=== PATIENT | male | born 1955 | race Caucasian/White ===

== ENCOUNTER 2021-05-01 03:04 | Inpatient (IN) | payer MEDICARE, MEDICAID, SELFPAY ==
[2021-05-01] VITALS (103 sets, daily range): BP systolic 121–186; BP diastolic 61–91; PULSE 77–119; RESP 0–35; TEMP 37.2; O2SAT 92–99; BMI 24.3
--- NOTE | 2021-05-01 03:08 | XRR_ITS ---
PROCEDURE INFORMATION: Exam: XR Chest Exam date and time: 05/01/2021 3:08 AM Age: 65 years old Clinical indication: Shortness of breath; Patient HX: SOB. Lethargy. Elevated blood sugar. ; Additional info: Cp TECHNIQUE: Imaging protocol: XR of the chest. Views: 1 view. COMPARISON: CT chest con [id number] 04/25/2019 9:13 PM FINDINGS: Lungs: Unremarkable. No consolidation. Pleural spaces: Unremarkable. No pleural effusion. No pneumothorax. Heart/Mediastinum: Unremarkable. No cardiomegaly. Bones/joints: Unremarkable. XR/XR chest 1V portable [id number] IMPRESSION: No acute disease.
--- NOTE | 2021-05-01 03:09 | ECG_ITS ---
[facility] Test Date: 2021-05-01 Pat Name: Lucho Nix Jr Department: Room: Gender: Male Director Software Development: : 1955 Requested By: Quentin Black Order Number: [id number] Reading MD: Payton Gomez M.D. Measurements Intervals [place] Rate: 104 P: 75 OR: 130 QRS: 74 QRSD: 99 T: 67 QT: 338 QTc: 446 Interpretive Statements SINUS TACHYCARDIA NONSPECIFIC T-WAVE ABNORMALITY WARNING: DATA QUALITY MAY AFFECT INTERPRETATION No previous ECG available for comparison Electronically Signed On 05-02-2021 18:27:11 CDT by Payton Gomez M.D. [email or web address]/store/OM/[id number]/[id number]
--- NOTE | 2021-05-01 03:10 | W.ED.WEAKNES ---
HPI - Weakness General: Chief complaint: General Medical Stated complaint: BLOOD SUGAR UP Time Seen by Provider: 05/01/21 03:04 Source: patient and EMS Mode of arrival: EMS Limitations: no limitations History of Present Illness: HPI Narrative: 65-year-old male has history of diabetes states that today has been feeling weak and nauseated. He states that he thinks he forgot to take his insulin his blood sugar was in the 500s per EMS. He states he had a episode of chest pain roughly 1 to 2 hours ago lasted 1 to 2 minutes and has been pain-free since and it resolved on its own. He denies any vomiting or diarrhea. States he had a low-grade fever earlier today but denies any cough or shortness of breath. Associated symptoms: Reports chest pain; Denies chills, dysuria, easy bruising, fever(s), headache(s), nausea or vomiting Review of Systems Const: Denies: fever(s), chills, body aches or change in appetite Eyes: Denies: blurry vision or eye discomfort ENMT: Denies: throat pain or dental pain Card: Reports: chest pain Resp: Denies: dyspnea GI: Denies: abdominal pain, nausea, vomiting or diarrhea : Denies: dysuria Musc: Denies: neck pain or back pain Skin/Breast: Denies: rash Neuro: Denies: headache(s) Psych: Denies: depression Tyler/Lymph: Denies: easy bruising All/Imm: Denies: urticaria Physical Exam Const: COMMON NORMALS: no acute distress, patient oriented x3 and healthy appearing HENMT: COMMON NORMALS: normocephalic and atraumatic HEAD & SCALP: normocephalic and atraumatic Eye: COMMON NORMALS: Equal, round and reactive pupils present and EOMs intact bilaterally PUPIL: Yes Equal, round and reactive pupils present Neck/C-Spine: COMMON NORMALS: full ROM and supple Chest: COMMONS NORMALS: normal inspection of the chest and normal palpation of entire chest wall Resp: COMMON NORMALS: normal respiratory effort, No retractions, No use of accessory muscles and clear to auscultation bilaterally AUSCULTATION: clear to auscultation bilaterally Cardio: COMMON NORMALS: regular rhythm and No murmurs present (Cardio) RATE: tachycardic RHYTHM: regular rhythm GI: COMMON NORMALS: Normal to inspection, nondistended, normoactive bowel sounds present, Soft to palpation, non-tender and no masses PALPATION: Yes Soft to palpation Extremity: COMMON NORMALS: normal to inspection and full ROM Neuro: COMMON NORMALS: patient oriented x3, moves all extremities and no focal motor deficits Psych: COMMON NORMALS: mental status grossly normal, Normal thought process present and cooperative THOUGHT PROCESS: Normal thought process present Skin: COMMON NORMALS: no rashes or lesions noted and no wounds GENERAL SKIN EXAM: no rashes or lesions noted Course Vital Signs: Vital signs: Vital Signs Temperature 98.9 F 05/01/21 03:07 Pulse Rate 111 H 05/01/21 03:07 Respiratory Rate 20 H 05/01/21 03:07 Blood Pressure 186/86 05/01/21 03:07 Pulse Oximetry 93 05/01/21 03:07 MDM - Weakness MDM Narrative: Medical decision making narrative: Patient presents here with nausea weakness and found to be in DKA is likely from noncompliance. Patient does not think he took his insulin yesterday he does have an elevated glucose on with anion gap and pH 7.1. Patient given IV fluids started on insulin drip. I spoke to the hospitalist will admit to ICU. Lab Data: Labs: Lab Results 05/01/21 05/01/21 05/01/21 Range/Units 03:08 03:18 03:18 WBC 19.2 H (4.0-10.0) 10^3/ uL RBC 5.72 H (4.1-5.3) 10^6/u L Hgb 16.4 (11.7-16.6) g/dL Hct 48.3 (42.0-52.0) % MCV 84.4 (80-94) fL MCH 28.7 (28.0-34.0) pg MCHC 34.0 (30.0-36.0) g/dL RDW 12.4 (12.1-15.1) % Plt Count 438 H (130-400) 10^3/c mm MPV 9.9 (7.4-10.4) fL Neut % (Auto) 91.4 % Lymph % (Auto) 4.3 % [place] % (Auto) 3.4 % Eos % (Auto) 0.0 % Baso % (Auto) 0.2 % Neut # (Auto) 17.60 H (1.8-7.7) 10^3/u L Lymph # (Auto) 0.8 (0.8-4.8) 10^3/u L [place] # (Auto) 0.7 (0.2-0.9) 10^3/u L Eos # (Auto) 0.0 (0.0-0.8) 10^3/u L Baso # (Auto) 0.0 (0.0-0.1) 10^3/u L Nucleated RBC % (a uto) 0 % Nucleated RBCs # 0.0 /100WBC Specimen Type Arterial Sample Site Radial, right ABG pH 7.17 L* (7.35-7.45) ABG pCO2 20.8 L (35-45) mmHg ABG pO2 110.0 H (80.0-100.0) mmH g ABG HCO3 7.5 L (22-26) mmol/L ABG Base Excess -19.0 L (-2.0-2.0) mmol/ L Sylvain Test Pos Hematocrit 49.7 (42-52) % O2 Delivery Device Room air Computer Aided Design Designer ID [employer]inja Sodium 126 L (136-145) mmol/L Potassium 4.6 (3.5-5.1) mmol/L Chloride 87 L (98-107) mmol/L Carbon Dioxide 8 L* (22-29) mmol/L Anion Gap 35.6 H (5-19) BUN 22 (8-23) mg/dL Creatinine 1.1 (0.7-1.2) mg/dL GFR Calculation 67.4 L (90-130) mL/min Glucose 564 H* (65-115) mg/dL POC Glucose (70-110) mg/dL Calculated Osmolal ity 291 (285-295) mOsm/k g Calcium 8.6 (8.5-10.5) mg/dL Total Bilirubin 0.6 (0.15-1.2) mg/dL AST 8 (0-40) U/L ALT 11 (0-41) U/L Alkaline Phosphata se 118 (40-130) IU/L Troponin T Baselin e (0-15) ng/L C-Reactive Protein 6.9 H (0.0-4.9) mg/L Total Protein 6.5 L (6.6-8.7) g/dL Albumin 4.0 (3.5-5.2) g/dL Globulin 2.5 (1.3-4.6) g/dL Serum Ketones (Negative) SARS-CoV-2 Ag (Rap id) (Negative) 05/01/21 05/01/21 05/01/21 Range/Units 03:18 03:18 03:25 WBC (4.0-10.0) 10^3/ uL RBC (4.1-5.3) 10^6/u L Hgb (11.7-16.6) g/dL Hct (42.0-52.0) % MCV (80-94) fL MCH (28.0-34.0) pg MCHC (30.0-36.0) g/dL RDW (12.1-15.1) % Plt Count (130-400) 10^3/c mm MPV (7.4-10.4) fL Neut % (Auto) % Lymph % (Auto) % [place] % (Auto) % Eos % (Auto) % Baso % (Auto) % Neut # (Auto) (1.8-7.7) 10^3/u L Lymph # (Auto) (0.8-4.8) 10^3/u L [place] # (Auto) (0.2-0.9) 10^3/u L Eos # (Auto) (0.0-0.8) 10^3/u L Baso # (Auto) (0.0-0.1) 10^3/u L Nucleated RBC % (a uto) % Nucleated RBCs # /100WBC Specimen Type Sample Site ABG pH (7.35-7.45) ABG pCO2 (35-45) mmHg ABG pO2 (80.0-100.0) mmH g ABG HCO3 (22-26) mmol/L ABG Base Excess (-2.0-2.0) mmol/ L Sylvain Test Hematocrit (42-52) % O2 Delivery Device Computer Aided Design Designer ID Sodium (136-145) mmol/L Potassium (3.5-5.1) mmol/L Chloride (98-107) mmol/L Carbon Dioxide (22-29) mmol/L Anion Gap (5-19) BUN (8-23) mg/dL Creatinine (0.7-1.2) mg/dL GFR Calculation (90-130) mL/min Glucose (65-115) mg/dL POC Glucose (70-110) mg/dL Calculated Osmolal ity (285-295) mOsm/k g Calcium (8.5-10.5) mg/dL Total Bilirubin (0.15-1.2) mg/dL AST (0-40) U/L ALT (0-41) U/L Alkaline Phosphata se (40-130) IU/L Troponin T Baselin e 9 (0-15) ng/L C-Reactive Protein (0.0-4.9) mg/L Total Protein (6.6-8.7) g/dL Albumin (3.5-5.2) g/dL Globulin (1.3-4.6) g/dL Serum Ketones Positive H (Negative) SARS-CoV-2 Ag (Rap id) Negative (Negative) 05/01/21 Range/Units 03:28 WBC (4.0-10.0) 10^3/ uL RBC (4.1-5.3) 10^6/u L Hgb (11.7-16.6) g/dL Hct (42.0-52.0) % MCV (80-94) fL MCH (28.0-34.0) pg MCHC (30.0-36.0) g/dL RDW (12.1-15.1) % Plt Count (130-400) 10^3/c mm MPV (7.4-10.4) fL Neut % (Auto) % Lymph % (Auto) % [place] % (Auto) % Eos % (Auto) % Baso % (Auto) % Neut # (Auto) (1.8-7.7) 10^3/u L Lymph # (Auto) (0.8-4.8) 10^3/u L [place] # (Auto) (0.2-0.9) 10^3/u L Eos # (Auto) (0.0-0.8) 10^3/u L Baso # (Auto) (0.0-0.1) 10^3/u L Nucleated RBC % (a uto) % Nucleated RBCs # /100WBC Specimen Type Sample Site ABG pH (7.35-7.45) ABG pCO2 (35-45) mmHg ABG pO2 (80.0-100.0) mmH g ABG HCO3 (22-26) mmol/L ABG Base Excess (-2.0-2.0) mmol/ L Sylvain Test Hematocrit (42-52) % O2 Delivery Device Computer Aided Design Designer ID Sodium (136-145) mmol/L Potassium (3.5-5.1) mmol/L Chloride (98-107) mmol/L Carbon Dioxide (22-29) mmol/L Anion Gap (5-19) BUN (8-23) mg/dL Creatinine (0.7-1.2) mg/dL GFR Calculation (90-130) mL/min Glucose (65-115) mg/dL POC Glucose 521 H* (70-110) mg/dL Calculated Osmolal ity (285-295) mOsm/k g Calcium (8.5-10.5) mg/dL Total Bilirubin (0.15-1.2) mg/dL AST (0-40) U/L ALT (0-41) U/L Alkaline Phosphata se (40-130) IU/L Troponin T Baselin e (0-15) ng/L C-Reactive Protein (0.0-4.9) mg/L Total Protein (6.6-8.7) g/dL Albumin (3.5-5.2) g/dL Globulin (1.3-4.6) g/dL Serum Ketones (Negative) SARS-CoV-2 Ag (Rap id) (Negative) EKG Data^: EKG 1: Attestation: I personally reviewed and interpreted this EKG as follows: EKG interpretation date: 05/01/21 EKG interpretation time: 03:13 Interpretation: sinus tach hr [address] or t wave abnormalities qrs 99 qtc 399 Critical Care Time Critical Care Time: Critical Care Time: Yes Total Critical Care Time: 35 Attestation: This case had a high probability of a clinically significant, sudden, or life threatening deterioration of this patient's condition which required my full and direct attention, intervention and personal management. Discharge Plan Discharge Patient Disposition: Admitted As Inpatient Clinical Impression: DKA (diabetic ketoacidoses) Qualifiers: Diabetes mellitus type: type 1 Diabetes mellitus complication detail: without coma Qualified Code(s): E10.10 - Type 1 diabetes mellitus with ketoacidosis without coma Condition: Stable Coding Level of Care Code ED Guest Service Agent for Chg Fwd Exam Comprehensive
[2021-05-01] MEDS: sodium chloride 0.9% 1,000 ML 999 ML IV (03:20)
[2021-05-01 03:27] LABS: Basophils % 0.2 %; Hematocrit 48.3 % (42.0-52.0); Hemoglobin 16.4 g/dL (11.7-16.6); Lymphocytes # 0.8 10^3/uL (0.8-4.8); Lymphocytes % 4.3 %; Mean Corpuscular Hemoglobin 28.7 pg (28.0-34.0); Mean Corpuscular Volume 84.4 fL (80-94); Mean Platelet Volume 9.9 fL (7.4-10.4); Monocytes # 0.7 10^3/uL (0.2-0.9); Monocytes % 3.4 %; Neutrophils % 91.4 %; Nucleated Red Blood Cells % 0 %; Platelet Count 438 10^3/cmm (130-400); Red Blood Count 5.72 10^6/uL (4.1-5.3); Red Cell Distribution Width 12.4 % (12.1-15.1); White Blood Count 19.2 10^3/uL (4.0-10.0)
[2021-05-01 03:32] LABS: Glucose Point of Care 521 mg/dL (70-110)
[2021-05-01 03:39] LABS: Ketone (Acetest) Serum Positive (Negative)
[2021-05-01 04:02] LABS: Alanine Aminotransferase 11 U/L (0-41); Alkaline Phosphatase 118 IU/L (40-130); Anion Gap 35.6 (5-19); Aspartate Amino Transferase 8 U/L (0-40); Blood Urea Nitrogen 22 mg/dL (8-23); C Reactive Protein 6.9 mg/L (0.0-4.9); Calcium 8.6 mg/dL (8.5-10.5); Chloride 87 mmol/L (98-107); Globulin 2.5 g/dL (1.3-4.6); Glomerular Filtration Rate 67.4 mL/min (90-130); Osmolality Calculated 291 mOsm/kg (285-295); Potassium 4.6 mmol/L (3.5-5.1); Sodium 126 mmol/L (136-145); Total Bilirubin 0.6 mg/dL (0.15-1.2); Total Protein 6.5 g/dL (6.6-8.7)
[2021-05-01 04:02] LABS: ABG PCO2 20.8 mmHg (35-45); Arterial Blood Gas Hematocrit 49.7 % (42-52); Blood Gas Allen Test Pos; Blood Gas Sample Site Radial, right; Blood Gas Sample Type Arterial; HCO3 ABG 7.5 mmol/L (22-26); Oxygen Device ROOM AIR
[2021-05-01 04:03] LABS: Carbon Dioxide 8 mmol/L (22-29); Glucose 564 mg/dL (65-115)
[2021-05-01 04:04] LABS: Troponin(5th) Baseline 9 ng/L (0-15)
[2021-05-01 04:12] LABS: SARS Covid-2 Antigen Negative (Negative)
[2021-05-01 04:23] LABS: Add Urine Microscopic? NO; Charge for UA Resulting for Rev
[2021-05-01] MEDS: insulin regular-human 250 UNIT in sodium chloride 0.9% 250 ML IV (04:44)
[2021-05-01 05:07] LABS: Urine Appearance Clear (CLEAR); Urine Color Straw (Yellow); pH Urine 5 (5-7)
[2021-05-01 05:08] LABS: Bilirubin Urine Neg (Negative); Blood Urine Neg (Negative); Glucose Urine UA 4+ (Normal); Ketones Urine 3+ (Negative); Leukocyte Esterase Urine Negative (Negative); Nitrate Urine Negative (Negative); Protein Urine Neg (Negative); Urobilinogen Urine Norm (Negative)
--- NOTE | 2021-05-01 05:09 | ECG_ITS ---
[facility] ED Test Date: 2021-05-01 Pat Name: Lucho Nix Jr Department: Room: Gender: Male Special Education Professor: : 1955 Requested By: Quentin Black Order Number: [id number] Sara MD: Payton Gomez M.D. Measurements Intervals [place] Rate: 111 P: 68 VT: 120 QRS: 82 QRSD: 93 T: 71 QT: 332 QTc: 452 Interpretive Statements SINUS TACHYCARDIA SEPTAL MYOCARDIAL INFARCTION [40+ ms Q WAVE IN V1/V2], PROBABLY OLD Compared to ECG 05/01/2021 03:13:08 Myocardial infarct finding now present T-wave abnormality no longer present Electronically Signed On 05-02-2021 18:41:06 CDT by Payton Gomez M.D. [email or web address]/[id number]
[2021-05-01 05:58] LABS: Glucose Point of Care 405 mg/dL (70-110)
[2021-05-01] MEDS: sodium chloride 0.9% 1,000 ML 150 ML IV ×2 (06:39→13:19)
--- NOTE | 2021-05-01 06:48 | P.HP_ITS ---
Providers/Chief Complaint Chief Complaint: BLOOD SUGAR UP History of Present Illness Lucho Nix Jr is a 65 year old male with a past medical history significant for diabetes mellitus who is presenting to the hospital with intermittent chest pain, hyperglycemia, dehydration and generalized weakness. Patient apparently had ran out of test strips. Patients was found to be in DKA. Laboratory work-up showed a WBC of 19.2, hemoglobin of 16.4, hematocrit of 48.3 and platelet count of 438. Sodium 136, potassium 4.6, chloride 87, bicarb 8, BUN 22 and a creatinine of 1.1. Glucose was elevated initially at 564. Urinalysis showed 3+ ketones as well as serum ketones positive. COVID-19 antigen was negative. Imaging studies included chest x-ray which is negative. Patient was started and DKA treatment protocol. Was on insulin drip and had received 2 L of NS and the emergency room. Review of Systems General: Reports: 10 or more systems reviewed and unremarkable except in HPI and below Medications/Allergies Allergies Allergy/AdvReac Type Severity Reaction Status Date / Time No Known Allergies Allergy Verified 05/01/21 03:09 Vitals/I&O/Wt Last Vital Signs Temp 98.9 F 05/01/21 03:07 Pulse 111 H 05/01/21 03:07 Resp 20 H 05/01/21 03:07 BP 186/86 05/01/21 03:07 Pulse Ox 93 05/01/21 03:07 Weight last 48 hrs Weight 70.307 kg Physical Exam Narrative: EXAM NARRATIVE: General?disheveled appearance, slightly confused HEENT?grossly unremarkable Chest nonlabored respiration CVS?tachycardia Abdomen?nondistended Extremity?no edema Skin dry mucous membrane Data : 05/01/21 03:18 05/01/21 03:18 A&P Assessment and plan (1) DKA (diabetic ketoacidoses): Continue insulin gtt Glucose check q1hr BMP q6hr NS at 150 cc/hr NPO Continue drip until AGAP closed Status: Acute Qualifiers: Diabetes mellitus complication detail: without coma Diabetes mellitus type: type 1 Qualified Code(s): E10.10 - Type 1 diabetes mellitus with ketoacidosis without coma Attestations Medical Necessity Statement*: Anticipate over 2 midnight stay in hospital for evaluation and treatment of diabetic ketoacidosis requiring IV insulin drip, dehydration requiring IV fluids. Time Spent in Patient Care: Greater than 35 minutes (>than 50% of time spent in counselling and/or direct pt care on unit) . Coding Level of Care Code Acute Director Teen Post for Chg Fwd Diagnoses DKA (diabetic ketoacidoses) E10.10 Diabetes mellitus complication detail: without coma Diabetes mellitus type: type 1
[2021-05-01] MEDS: heparin 5,000 unit/mL INJ 1 mL 5000 UNIT SUBCUT ×2 (07:05→18:36)
[2021-05-01 07:16] LABS: Glucose Point of Care 471 mg/dL (70-110)
[2021-05-01 08:06] LABS: Glucose Point of Care 300 mg/dL (70-110)
[2021-05-01] MEDS: pantoprazole DR 40 mg Tablet PO (08:57)
[2021-05-01 09:07] LABS: Glucose Point of Care 270 mg/dL (70-110)
[2021-05-01 10:16] LABS: Glucose Point of Care 241 mg/dL (70-110)
[2021-05-01 11:14] LABS: Glucose Point of Care 209 mg/dL (70-110)
[2021-05-01 11:40] LABS: Blood Urea Nitrogen 19 mg/dL (8-23); Calcium 8.3 mg/dL (8.5-10.5); Carbon Dioxide 13 mmol/L (22-29); Chloride 99 mmol/L (98-107); Glucose 239 mg/dL (65-115); Magnesium 1.5 mg/dL (1.7-2.3); Osmolality Calculated 282 mOsm/kg (285-295); Phosphorus 1.5 mg/dL (2.5-4.5); Sodium 131 mmol/L (136-145)
[2021-05-01 11:42] LABS: Anion Gap 22.7 (5-19); Potassium 3.7 mmol/L (3.5-5.1)
[2021-05-01 12:14] LABS: Glucose Point of Care 182 mg/dL (70-110)
[2021-05-01 12:18] LABS: Troponin 5 6HR 11.15 ng/L (0-15); Troponin 5 6HR Delta 2.15 ng/L (0-12)
[2021-05-01 13:10] LABS: Glucose Point of Care 142 mg/dL (70-110)
[2021-05-01 13:50] LABS: Glucose Point of Care 141 mg/dL (70-110)
--- NOTE | 2021-05-01 13:50 | PC.NURSE ---
Pt arrives to ICU from ED. Insulin gtt infusing at 5units/hour. NS infusing. Pt complaining of being hungry and wanting food. , then t decided he would prefer to take a nap first. Bilat knees large amount of p urple bruising noted. Pt stated he fell down the ther day. His feet have red/pink streaks following veins and mottling on ankle bones.
[2021-05-01] MEDS: phosphorus 250 mg Tablet PO ×2 (14:12→18:35)
[2021-05-01] MEDS: magnesium sulfate premix 2 GM/50 ML PIGGYBACK IV (14:13)
[2021-05-01 15:23] LABS: Glucose Point of Care 121 mg/dL (70-110)
[2021-05-01 16:08] LABS: Glucose Point of Care 102 mg/dL (70-110)
[2021-05-01 17:21] LABS: Glucose Point of Care 109 mg/dL (70-110)
--- NOTE | 2021-05-01 17:43 | PC.NURSE ---
Pt refuses to wear O2 monitor probe at this time. Pt OOB to use urinal, partially urinated on floor.
[2021-05-01 17:53] LABS: Anion Gap 17.5 (5-19); Blood Urea Nitrogen 16 mg/dL (8-23); Carbon Dioxide 18 mmol/L (22-29); Chloride 103 mmol/L (98-107); Creatinine Clr Calc Pharmacy 89.4356; Glomerular Filtration Rate 97.3 mL/min (90-130); Glucose 110 mg/dL (65-115); Osmolality Calculated 282 mOsm/kg (285-295); Potassium 3.5 mmol/L (3.5-5.1); Sodium 135 mmol/L (136-145)
--- NOTE | 2021-05-01 18:15 | PM.PN ---
Subjective Subjective: Interval history: His abdomen was cramping earlier. He was very hungry, so requested something to eat. Clear liquids were added, he tried some, however, still finding that his abdomen is cramping. For now discussed with him will continue on bowel rest until further improvement. He agrees. Discussed with him also assessing CT abdomen pelvis as he does have abdominal tenderness on exam as well. Vitals/I&O/Wt Last Vital Signs Temp 98.9 F 05/01/21 03:07 Pulse 95 05/01/21 14:00 Resp 18 05/01/21 13:13 BP 129/61 05/01/21 13:13 Pulse Ox 98 05/01/21 13:13 05/01/21 05/01/21 05/01/21 06:59 14:59 22:59 Intake Total 1000 / 1000 46.917 / 46.917 52.92 / 99.837 Balance 1000 / 1000 46.917 / 46.917 52.92 / 99.837 Weight last 48 hrs Weight 70.307 kg Physical Exam Const: COMMON NORMALS: no acute distress and patient oriented x3 GENERAL APPEARANCE: frail appearing OTHER: Weak HENMT: COMMON NORMALS: oropharynx normal Neck/C-Spine: COMMON NORMALS: no JVD Resp: COMMON NORMALS: normal respiratory effort and clear to auscultation bilaterally AUSCULTATION: clear to auscultation bilaterally Cardio: COMMON NORMALS: no JVD, regular rhythm, S1 normal heart sound present, S2 normal heart sound present and No murmurs present (Cardio) RHYTHM: regular rhythm HEART SOUNDS: S1 normal heart sound present and S2 normal heart sound present GI: COMMON NORMALS: Normal to inspection, nondistended, normoactive bowel sounds present and Soft to palpation PALPATION: Yes Soft to palpation and Yes Tenderness to palpation present (GI) (moderate on deep palpation, worse LLQ) Extremity: COMMON NORMALS: no joint enlargement and no pedal edema Neuro: COMMON NORMALS: patient oriented x3 and moves all extremities Skin: COMMON NORMALS: no rashes or lesions noted GENERAL SKIN EXAM: no rashes or lesions noted Data : 05/01/21 03:18 05/01/21 17:05 A&P Assessment and plan (1) DKA (diabetic ketoacidoses): Continue insulin gtt, IVF Overall parameters are improving noted of 18. Had a gap down to 17.5. Dehydration gradually improving. Tachycardia improving, heart rate down to 95. Changed back to n.p.o. Recheck metabolic panel. Replace electrolyte deficiencies. Status: Acute Qualifiers: Diabetes mellitus complication detail: without coma Diabetes mellitus type: type 1 Qualified Code(s): E10.10 - Type 1 diabetes mellitus with ketoacidosis without coma Additional A&P Information Abdominal tenderness: Some cramping earlier thought to be secondary to DKA, but still persistent, and also tenderness on exam left lower quadrant. Will additionally assess with noncontrast CT abdomen pelvis. Attestations Medical Necessity Statement*: Continue admission for assessment management DKA. Coding Level of Care Code Acute Technology Project Manager for [facility] Diagnoses DKA (diabetic ketoacidoses) E10.10 Diabetes mellitus complication detail: without coma Diabetes mellitus type: type 1
[2021-05-01 18:21] LABS: ABG PH Result 7.17 (7.35-7.45)
[2021-05-01 18:23] LABS: Glucose Point of Care 105 mg/dL (70-110)
[2021-05-01 19:15] LABS: Glucose Point of Care 101 mg/dL (70-110)
--- NOTE | 2021-05-01 19:20 | PC.NURSE ---
Addendum entered by Corina Mohr RN 05/01/21 19:26: Report given to VINCENT Mark. Original Note: Shift summary: Pt to ICU early afternoon from ED. Pt has rested with eyes closed mostly. He does get irritable. He complains that he is hungry then say he has to take it slow cause I haven't eaten for days, my belly hurts. Pt does not like the clear liquid diet, pt encouraged to finish as much as he can. Insulin gtt has been off since 1600, blood sugars have leveled off around 105 mg/dl. He has 1 PIDD in left AC. He has urinated once this shift. He did allow the O2 probe to be reapplied.
[2021-05-01] MEDS: sodium chloride 0.9% 1,000 ML 75 ML IV (19:23)
[2021-05-01 20:09] LABS: Glucose Point of Care 98 mg/dL (70-110)
[2021-05-01] MEDS: D5-NS 0.45% + KCL 20 mEq 20 MEQ/1,000 ML BAG 100 MEQ IV (21:03)
[2021-05-01 21:10] LABS: Glucose Point of Care 88 mg/dL (70-110)
[2021-05-01 22:10] LABS: Glucose Point of Care 116 mg/dL (70-110)
--- NOTE | 2021-05-01 22:22 | ECG_ITS ---
[facility] Test Date: 2021-05-01 Pat Name: Lucho Nix Jr Department: Room: [facility] Gender: Male Advance Seal Delivery System Maintainer: : 1955 Requested By: Gennaro Arauz Order Number: [id number] Sara MD: Payton Gomez M.D. Measurements Intervals [place] Rate: 89 P: 61 DE: 119 QRS: 68 QRSD: 100 T: 87 QT: 384 QTc: 470 Interpretive Statements SINUS RHYTHM WITH SHORT DE INTERVAL NONSPECIFIC T-WAVE ABNORMALITY Compared to ECG 05/01/2021 05:20:51 Short DE interval now present T-wave abnormality now present Sinus tachycardia no longer present Myocardial infarct finding no longer present Electronically Signed On 05-02-2021 18:14:40 CDT by Payton Gomez M.D. [email or web address]/[id number] f
[2021-05-01 22:56] LABS: Anion Gap 17.5 (5-19); Blood Urea Nitrogen 14 mg/dL (8-23); Calcium 7.8 mg/dL (8.5-10.5); Carbon Dioxide 15 mmol/L (22-29); Chloride 100 mmol/L (98-107); Glomerular Filtration Rate 135.6 mL/min (90-130); Glucose 118 mg/dL (65-115); Osmolality Calculated 270 mOsm/kg (285-295); Potassium 3.5 mmol/L (3.5-5.1); Sodium 129 mmol/L (136-145)
[2021-05-01 23:03] LABS: Glucose Point of Care 134 mg/dL (70-110)
[2021-05-02] VITALS (92 sets, daily range): BP systolic 85–160; BP diastolic 51–91; PULSE 65–105; RESP 0–27; TEMP 36.6; O2SAT 64–100
[2021-05-02 00:11] LABS: Glucose Point of Care 155 mg/dL (70-110)
[2021-05-02 01:04] LABS: Glucose Point of Care 166 mg/dL (70-110)
[2021-05-02 02:07] LABS: Glucose Point of Care 150 mg/dL (70-110)
[2021-05-02 03:03] LABS: Glucose Point of Care 161 mg/dL (70-110)
[2021-05-02 04:16] LABS: Glucose Point of Care 191 mg/dL (70-110)
[2021-05-02 05:01] LABS: Glucose Point of Care 182 mg/dL (70-110)
[2021-05-02 05:16] LABS: Basophils % 0.2 %; Eosinophils % 0.1 %; Hematocrit 40.6 % (42.0-52.0); Hemoglobin 14.3 g/dL (11.7-16.6); Lymphocytes # 1.4 10^3/uL (0.8-4.8); Lymphocytes % 6.9 %; Mean Corpuscular HGB Conc 35.2 g/dL (30.0-36.0); Mean Corpuscular Hemoglobin 29.2 pg (28.0-34.0); Mean Platelet Volume 9.6 fL (7.4-10.4); Monocytes # 1.9 10^3/uL (0.2-0.9); Monocytes % 9.6 %; Neutrophils # 16.18 10^3/uL (1.8-7.7); Neutrophils % 82.6 %; Nucleated Red Blood Cells % 0 %; Platelet Count 350 10^3/cmm (130-400); Red Blood Count 4.89 10^6/uL (4.1-5.3); Red Cell Distribution Width 12.9 % (12.1-15.1); White Blood Count 19.6 10^3/uL (4.0-10.0)
[2021-05-02 05:39] LABS: Magnesium 1.7 mg/dL (1.7-2.3); Phosphorus 1.7 mg/dL (2.5-4.5)
[2021-05-02 06:04] LABS: Glucose Point of Care 202 mg/dL (70-110)
[2021-05-02] MEDS: heparin 5,000 unit/mL INJ 1 mL 5000 UNIT SUBCUT ×2 (06:05→17:54)
[2021-05-02] MEDS: D5-NS 0.45% + KCL 20 mEq 20 MEQ/1,000 ML BAG 100 MEQ IV ×2 (06:06→17:55)
--- NOTE | 2021-05-02 08:00 | PC.NURSE ---
Assessment changes; When pt admitted yesterday his kees where very purple. The right has a green tinge to the upper edge of the purple. Pt had stated he fell at home and bruised his knees so areas marked as bruised. Knees no longer purple this am, so knees where mottled deeper than his ankles were yesterday. no mottling anywhere noted today. His skin is normal and pink.
--- NOTE | 2021-05-02 08:24 | PC.NURSE ---
Pt belligerent this am. He refused temperature taking axillary. Attempted to explain his plan of care and his WBC being elevated. Pt said Well, them take it in my fucking mouth. . Afebrile. Pt then told nurse to 'Shut your fucking mouth. Your voice is annoying. Pt then complained about his breakfast, Nothing by mouth except chips and sips where exlained.
[2021-05-02 08:27] LABS: Glucose Point of Care 210 mg/dL (70-110)
[2021-05-02 08:55] LABS: Glucose Point of Care 182 mg/dL (70-110)
[2021-05-02] MEDS: magnesium sulfate premix 2 GM/50 ML PIGGYBACK IV (09:37)
[2021-05-02] MEDS: mirtazapine 15 mg Tablet 7.5 MG PO (09:52)
[2021-05-02] MEDS: phosphorus 250 mg Tablet PO ×2 (09:52→17:54)
[2021-05-02] MEDS: atenolol 50 mg Tablet 25 MG PO (09:55)
[2021-05-02] MEDS: pantoprazole DR 40 mg Tablet PO ×2 (09:56→17:54)
--- NOTE | 2021-05-02 10:55 | CTR_ITS ---
PROCEDURE INFORMATION: Exam: CT Abdomen And Pelvis Without Contrast Exam date and time: 05/02/2021 10:55 AM Age: 65 years old Clinical indication: Abdominal pain; Generalized; Prior surgery; Surgery date: 6+ months; Surgery type: L hip; Patient HX: C/O abd cramping TECHNIQUE: Imaging protocol: Computed tomography of the abdomen and pelvis without contrast. Radiation optimization: All CT scans at this facility use at least one of these dose optimization techniques: automated exposure control; mA and/or kV adjustment per patient size (includes targeted exams where dose is matched to clinical indication); or iterative reconstruction. COMPARISON: US gall bladder [id number] 04/25/2019 8:41 PM RADIATION DOSE METRICS: Total DLP (mGy-cm): 1205.97 FINDINGS: Pleural spaces: Small bilateral pleural effusions. Mediastinal space: There is mucosal thickening of the distal esophagus and gastroesophageal junction. Liver: Normal. No mass. Gallbladder and bile ducts: Normal. No calcified stones. No ductal dilation. Pancreas: Moderate pancreatic atrophy. Spleen: Normal. No splenomegaly. Adrenal glands: Normal. No mass. Kidneys and ureters: Normal. No hydronephrosis. Stomach and bowel: Possible gastric mucosal thickening versus under distention. Colonic constipation is present. Appendix: No evidence of appendicitis. Intraperitoneal space: Unremarkable. No free air. No significant fluid collection. Vasculature: Unremarkable. No abdominal aortic aneurysm. Lymph nodes: Unremarkable. No enlarged lymph nodes. Urinary bladder: Unremarkable as visualized. Reproductive: Prostate gland indents the base of the bladder consistent with median lobe enlargement. Bones/joints: Unremarkable. No acute fracture. Soft tissues: There is edema in the subcutaneous soft tissues surrounding the abdomen and pelvis. CT/CT abdomen pelvis con [id number] IMPRESSION: 1. There is mucosal thickening of the distal esophagus and gastroesophageal junction. Differential includes nonspecific esophagitis/gastritis and neoplasm. 2. Colonic constipation is present. 3. Small bilateral pleural effusions. Radiation Dose CTDIVOL = (mGy): DLP = 1205.97 (mGy-cm)
[2021-05-02 11:21] LABS: Glucose Point of Care 109 mg/dL (70-110)
[2021-05-02 11:21] LABS: Glucose Point of Care 225 mg/dL (70-110)
[2021-05-02 11:21] LABS: Glucose Point of Care 210 mg/dL (70-110)
[2021-05-02 11:40] LABS: Anion Gap 20.9 (5-19); Blood Urea Nitrogen 12 mg/dL (8-23); Calcium 7.9 mg/dL (8.5-10.5); Carbon Dioxide 16 mmol/L (22-29); Chloride 100 mmol/L (98-107); Glomerular Filtration Rate 135.6 mL/min (90-130); Glucose 194 mg/dL (65-115); Osmolality Calculated 281 mOsm/kg (285-295); Potassium 3.9 mmol/L (3.5-5.1); Sodium 133 mmol/L (136-145)
[2021-05-02 12:24] LABS: Glucose Point of Care 121 mg/dL (70-110)
[2021-05-02 13:24] LABS: Glucose Point of Care 99 mg/dL (70-110)
[2021-05-02 15:11] LABS: Glucose Point of Care 139 mg/dL (70-110)
[2021-05-02 15:11] LABS: Glucose Point of Care 111 mg/dL (70-110)
--- NOTE | 2021-05-02 15:15 | PC.NURSE ---
Clothing: Pt had difficulty with urinal this afternoon, urinated on his shorts. Pt gave permission to have his joseph shorts sent to [facility].
[2021-05-02 15:58] LABS: Glucose Point of Care 127 mg/dL (70-110)
[2021-05-02 17:22] LABS: Glucose Point of Care 129 mg/dL (70-110)
--- NOTE | 2021-05-02 17:30 | PC.NURSE ---
Bisacodyl suppository administered at this time. Pt had refused repeatedly up to this point.
[2021-05-02] MEDS: polyethylene glycol 3350 Pkt 17 gm PO (17:54)
[2021-05-02] MEDS: bisacodyl 10 mg Supp PR (18:07)
[2021-05-02 18:20] LABS: Glucose Point of Care 161 mg/dL (70-110)
--- NOTE | 2021-05-02 18:55 | PC.NURSE ---
Report given to Francesca Mark.
[2021-05-02 19:09] LABS: Glucose Point of Care 170 mg/dL (70-110)
--- NOTE | 2021-05-02 19:37 | PC.NURSE ---
Shift summary: Pt has rested in bed with his eyes closed most of day. This is his preferred interaction with staff. He has cursed and been verbal aggressive to this nurse in am. He pinched another nurse this evening while being helped to [facility]. He had CT of abdomen done today for his complaints of abdominal pain, it noted constipation. His skin on his hands is calloused and thick, difficult to get finger sticks to check blood sugar. He remains on insulin gtt. He has IV fluids infusing. He has remained in sinus rhythm. He has not cooperated much with temperature checks or pulse ox probe. Urine output is adequate, although he urinated very infrequently.
[2021-05-02 20:00] LABS: Anion Gap 14.3 (5-19); Blood Urea Nitrogen 8 mg/dL (8-23); Calcium 7.8 mg/dL (8.5-10.5); Carbon Dioxide 22 mmol/L (22-29); Chloride 103 mmol/L (98-107); Glomerular Filtration Rate 167.4 mL/min (90-130); Glucose 162 mg/dL (65-115); Osmolality Calculated 284 mOsm/kg (285-295); Potassium 3.3 mmol/L (3.5-5.1); Sodium 136 mmol/L (136-145)
[2021-05-02 20:02] LABS: Glucose Point of Care 185 mg/dL (70-110)
--- NOTE | 2021-05-02 20:33 | PM.PN ---
Subjective Subjective: Interval history: Still abdominal discomfort/pain. Today he denies that he had pain with food yesterday. No vomiting. States he was not passing gas this morning. Agreeable for assessment by CT abdomen pelvis. Vitals/I&O/Wt Last Vital Signs Temp 97.9 F 05/02/21 08:00 Pulse 69 05/02/21 20:00 Resp 14 05/02/21 20:00 BP 109/62 05/02/21 20:00 Pulse Ox 94 05/02/21 18:00 05/02/21 05/02/21 05/02/21 06:59 14:59 22:59 Intake Total 905 / 2405.637 . / . 1004.942 / 1026.092 Output Total 425 / 750 550 / 550 Balance 480 / 1655.637 454.942 / 476.092 Weight last 48 hrs Weight 70.307 kg Physical Exam Const: COMMON NORMALS: no acute distress and patient oriented x3 GENERAL APPEARANCE: frail appearing OTHER: Appears little bit stronger today. More interactive. HENMT: COMMON NORMALS: oropharynx normal Neck/C-Spine: COMMON NORMALS: no JVD Resp: COMMON NORMALS: normal respiratory effort and clear to auscultation bilaterally AUSCULTATION: clear to auscultation bilaterally Cardio: COMMON NORMALS: no JVD, regular rhythm, S1 normal heart sound present, S2 normal heart sound present and No murmurs present (Cardio) RHYTHM: regular rhythm HEART SOUNDS: S1 normal heart sound present and S2 normal heart sound present GI: COMMON NORMALS: Normal to inspection, nondistended, normoactive bowel sounds present and Soft to palpation PALPATION: Yes Soft to palpation and Yes Tenderness to palpation present (GI) (moderate on deep palpation, worse LLQ) Extremity: COMMON NORMALS: no joint enlargement and no pedal edema Neuro: COMMON NORMALS: patient oriented x3 and moves all extremities Skin: COMMON NORMALS: no rashes or lesions noted GENERAL SKIN EXAM: no rashes or lesions noted Data : 05/02/21 04:58 05/02/21 19:05 A&P Assessment and plan (1) DKA (diabetic ketoacidoses): Anion gap not yet closed today. Rechecked this evening, appears to be improving. Bicarb up to 22, and gap down to 14.3. Glucose improving down to 160s. Transition to subcu insulin. Clear liquid, consistent carbohydrate diet. Continue IVF for now until resumes oral intake more steady. Received additional magnesium, phosphorus today. Status: Acute Qualifiers: Diabetes mellitus complication detail: without coma Diabetes mellitus type: type 1 Qualified Code(s): E10.10 - Type 1 diabetes mellitus with ketoacidosis without coma Additional A&P Information Abdominal tenderness: CT abdomen pelvis obtained with noted mucosal thickening of distal esophagus and gastroesophageal junction. Possible esophagitis/gastritis. Possible neoplasm. Will need additional evaluation endoscopic evaluation once out of acute illness. For now continue PPI. Constipation. Started on bowel regimen. Some of the symptoms could have been secondary to DKA. Attestations Medical Necessity Statement*: Continue admission for assessment management of DKA, reassessments of abdominal tenderness. 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
[2021-05-02] MEDS: insulin glargine 100 units/1 mL 10 UNIT SUBCUT (20:56)
[2021-05-02] MEDS: potassium chloride ER 20 mEq Tablet 40 MEQ PO (20:56)
[2021-05-03] VITALS (15 sets, daily range): BP systolic 113–163; BP diastolic 59–93; PULSE 65–87; RESP 5–22; TEMP 36.7–37.1; O2SAT 96–100
[2021-05-03 02:03] LABS: Glucose Point of Care 265 mg/dL (70-110)
[2021-05-03 03:46] LABS: Basophils % 0.3 %; Eosinophils % 0.1 %; Hematocrit 42.2 % (42.0-52.0); Hemoglobin 14.1 g/dL (11.7-16.6); Lymphocytes # 1.5 10^3/uL (0.8-4.8); Mean Corpuscular HGB Conc 33.4 g/dL (30.0-36.0); Mean Corpuscular Hemoglobin 29.1 pg (28.0-34.0); Mean Corpuscular Volume 87.2 fL (80-94); Mean Platelet Volume 9.8 fL (7.4-10.4); Monocytes # 1.6 10^3/uL (0.2-0.9); Monocytes % 13.4 %; Neutrophils # 8.93 10^3/uL (1.8-7.7); Neutrophils % 73.6 %; Nucleated Red Blood Cells % 0 %; Platelet Count 278 10^3/cmm (130-400); Red Blood Count 4.84 10^6/uL (4.1-5.3); White Blood Count 12.1 10^3/uL (4.0-10.0)
[2021-05-03 04:30] LABS: Alanine Aminotransferase 6 U/L (0-41); Alkaline Phosphatase 84 IU/L (40-130); Aspartate Amino Transferase 9 U/L (0-40); Blood Urea Nitrogen 6 mg/dL (8-23); Calcium 7.6 mg/dL (8.5-10.5); Carbon Dioxide 19 mmol/L (22-29); Chloride 103 mmol/L (98-107); Globulin 2.2 g/dL (1.3-4.6); Glomerular Filtration Rate 167.4 mL/min (90-130); Glucose 200 mg/dL (65-115); Magnesium 1.9 mg/dL (1.7-2.3); Osmolality Calculated 285 mOsm/kg (285-295); Phosphorus 1.9 mg/dL (2.5-4.5); Sodium 136 mmol/L (136-145); Total Bilirubin 0.5 mg/dL (0.15-1.2); Total Protein 5.2 g/dL (6.6-8.7)
[2021-05-03 04:35] LABS: Anion Gap 17.7 (5-19); Potassium 3.7 mmol/L (3.5-5.1)
[2021-05-03] MEDS: heparin 5,000 unit/mL INJ 1 mL 5000 UNIT SUBCUT ×2 (05:25→17:44)
[2021-05-03] MEDS: D5-NS 0.45% + KCL 20 mEq 20 MEQ/1,000 ML BAG 100 MEQ IV (05:47)
[2021-05-03 08:43] LABS: Glucose Point of Care 264 mg/dL (70-110)
[2021-05-03] MEDS: mirtazapine 15 mg Tablet 7.5 MG PO (08:53)
[2021-05-03] MEDS: polyethylene glycol 3350 Pkt 17 gm PO (08:53)
[2021-05-03] MEDS: pantoprazole DR 40 mg Tablet PO (08:54)
[2021-05-03] MEDS: atenolol 50 mg Tablet 25 MG PO (08:54)
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
[2021-05-03 12:16] LABS: Glucose Point of Care 231 mg/dL (70-110)
--- NOTE | 2021-05-03 12:46 | PC.NURSE ---
Report faxed to [facility].
--- NOTE | 2021-05-03 12:55 | PC.NURSE ---
Called [facility] to give report, will call back.
--- NOTE | 2021-05-03 13:54 | PC.NURSE ---
Xiomara Hidalgo RN, called for report. Report given.
--- NOTE | 2021-05-03 14:20 | PC.NURSE ---
Mr Nix transferred to [facility] via W/c. Personal belongings including clothing, wallet, cell phone and baggie of loose change transferred withpt.
--- NOTE | 2021-05-03 16:22 | PC.NUTR ---
Nutrition assessment completed d/t possible wt loss per MST. Recommend to add consistent carb guidelines to current diet. Unclear on rationale for mechanical soft at this time as chewing difficulty not noted per chart review. Will adjust as needed pending further information. See full RD assessment for further details.
[2021-05-03 17:15] LABS: Glucose Point of Care 191 mg/dL (70-110)
[2021-05-03] MEDS: ropinirole 1 mg Tablet PO (20:50)
[2021-05-03] MEDS: insulin glargine 100 units/1 mL 40 UNIT SUBCUT (20:51)
[2021-05-03 22:09] LABS: Glucose Point of Care 138 mg/dL (70-110)
[2021-05-03 22:09] LABS: Glucose Point of Care 75 mg/dL (70-110)
[2021-05-04] MEDS: LORazepam 0.5 mg Tablet PO (03:14)
[2021-05-04 03:47] VITALS: BP 137/80; PULSE 72; RESP 18; TEMP 36.9; O2SAT 99
[2021-05-04] MEDS: heparin 5,000 unit/mL INJ 1 mL 5000 UNIT SUBCUT (05:55)
[2021-05-04 06:26] LABS: Glucose Point of Care 83 mg/dL (70-110)
[2021-05-04 06:35] LABS: Alanine Aminotransferase 6 U/L (0-41); Alkaline Phosphatase 76 IU/L (40-130); Anion Gap 12.2 (5-19); Aspartate Amino Transferase 9 U/L (0-40); Blood Urea Nitrogen 7 mg/dL (8-23); Calcium 7.8 mg/dL (8.5-10.5); Carbon Dioxide 30 mmol/L (22-29); Chloride 100 mmol/L (98-107); Globulin 2.1 g/dL (1.3-4.6); Glomerular Filtration Rate 135.6 mL/min (90-130); Glucose 67 mg/dL (65-115); Osmolality Calculated 284 mOsm/kg (285-295); Potassium 3.2 mmol/L (3.5-5.1); Sodium 139 mmol/L (136-145); Total Bilirubin 0.5 mg/dL (0.15-1.2); Total Protein 5.1 g/dL (6.6-8.7)
[2021-05-04 09:00] VITALS: BP 114/68; PULSE 88; RESP 16; TEMP 36.9; O2SAT 98
[2021-05-04] MEDS: HYDROcodone-acetaminophen 10-325 mg Tablet 1 TAB PO (10:30)
[2021-05-04 10:56] LABS: Glucose Point of Care 280 mg/dL (70-110)
[2021-05-04] MEDS: insulin glargine 100 units/1 mL 25 UNIT SUBCUT (11:59)
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
[2021-05-04 12:06] VITALS: BP 114/68; PULSE 88; RESP 16; TEMP 36.9; O2SAT 98
--- NOTE | 2021-05-04 14:20 | DCPLANNER ---
Despite what the headings read - there is not an IM in the chart. One presented to pt. He absolutely does not want to appeal anything, he's been trying to get out of here. Copy provided.
== END 2021-05-04 15:05 | disposition home or self-care (01) | DRG 639 ==
LOC: ER 07:48 → ICU 18:29 → MEDSURG 05-03 14:08
PROVIDERS: Hospitalist; Admitting Provider Internal Medicine; Emergency Provider Emergency Medicine; Visit Provider Internal Medicine
DX: E10.10 Type 1 diabetes mellitus with ketoacidosis without coma (principal); E86.0 Dehydration; K59.00 Constipation, unspecified; Z79.891 Long term (current) use of opiate analgesic; R10.819 Abdominal tenderness, unspecified site
CPT/HCPCS: 36415; 36416; 71045; 74176; 80048; 80053; 81003; 82009; 82803; 82962; 83735; 84100; 84484; 85025; 86140; 87426; 93005; 96372; 97161; 99285; J1644; J1815 ×2; J3475; J7030; J7050